=== PATIENT | female | born 2000 | race Caucasian/White ===

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

== ENCOUNTER 2019-03-15 15:16 | Emergency (ER) | payer BC ==
[2019-03-15 15:39] VITALS: BP 137/76
[2019-03-15] MEDS ORDERED: DOXYcycline CAP(*) 100 MG PO ONE (15:55)
--- NOTE | 2019-03-15 16:00 | ED ---
Skin Complaint - HPI Summary HPI Summary: 18 yr old with tick bite to the right lateral umbilical area. The patient had the tick on for about an hour and pulled it off intact. She has no other complaints. No other issues. She has allergies to penicillins. - History of Current Complaint Chief Complaint: UCSkin Time Seen by Provider: 03/15/19 15:38 Stated Complaint: TICK BITE Hx Last Menstrual Period: 03/12/19 Pain Intensity: 0 - Allergy/Home Medications Allergies/Adverse Reactions: Allergies Allergy/AdvReac Type Severity Reaction Status Date / Time amoxicillin Allergy Intermediate Rash Verified 03/15/19 15:36 Penicillins Allergy Intermediate Rash Verified 03/15/19 15:36 Home Medications: Home Medications Norethindrone AC-Eth Estradiol [Junel 1 mg-20 Mcg Tablet] 1 tab DAILY 03/15/19 [ History Confirmed 03/15/19] PMH/Surg Hx/FS Hx/Imm Hx Endocrine/Hematology History: Denies: Hx Anticoagulant Therapy, Hx Diabetes, Hx Thyroid Disease Cardiovascular History: Denies: Hx Congestive Heart Failure, Hx Deep Vein Thrombosis, Hx Hypertension , Hx Myocardial Infarction, Hx Pacemaker/ICD Respiratory History: Denies: Hx Asthma, Hx Chronic Obstructive Pulmonary Disease (COPD), Hx Lung Cancer, Hx Pneumonia, Hx Pulmonary Embolism GI History: Denies: Hx Gall Bladder Disease, Hx Gastrointestinal Bleed, Hx Ulcer, Hx Urosepsis History: Denies: Hx Kidney Stones, Hx Renal Disease Neurological History: Denies: Hx Dementia, Hx Migraine, Hx Seizures, Hx Transient Ischemic Attacks (TIA) Psychiatric History: Denies: Hx Anxiety, Hx Depression, Hx Schizophrenia, Hx Bipolar Disorder Infectious Disease History: No Infectious Disease History: Denies: Traveled Outside the [place] in Last 30 Days - Family History Known Family History: Positive: Hypertension Negative: Cardiac Disease - Social History Alcohol Use: Occasionally Substance Use Type: Reports: None Smoking Status (MU): Never Smoked Tobacco Review of Systems Constitutional: Negative Positive: Other - tick bite All Other Systems Reviewed And Are Negative: Yes Physical Exam Triage Information Reviewed: Yes Vital Signs On Initial Exam: Initial Vitals Temp Pulse Resp BP Pulse Ox 98.5 F 79 16 137/76 97 03/15/19 15:37 03/15/19 15:37 03/15/19 15:37 03/15/19 15:37 03/15/19 15:37 Vital Signs Reviewed: Yes Appearance: Positive: Well-Appearing, No Pain Distress Skin: Positive: Other - there is a small bite louis to the right of the umbilicus. No erythema. No FB seen. Head/Face: Positive: Normal Head/Face Inspection Eyes: Positive: EOMI, MERISSA ENT: Positive: Normal ENT inspection Neck: Positive: Nontender Respiratory/Lung Sounds: Positive: Clear to Auscultation, Breath Sounds Present Cardiovascular: Positive: RRR. Negative: Murmur Abdomen Description: Positive: Nontender Musculoskeletal: Positive: Strength/ROM Intact Neurological: Positive: Sensory/Motor Intact, Alert, Oriented to Person Place, Time, CN Intact II-III, Normal Gait, Speech Normal Psychiatric: Positive: Normal - [place] Coma Scale Best Eye Response: 4 - Spontaneous Best Motor Response: 6 - Obeys Commands Best Verbal Response: 5 - Oriented Coma Scale Total: 15 Diagnostics - Vital Signs Vital Signs Temp Pulse Resp BP Pulse Ox 03/15/19 15:37 98.5 F 79 16 137/76 97 - Laboratory Lab Statement: Any lab studies that have been ordered have been reviewed, and results considered in the medical decision making process. Course/Dx - Course Course Of Treatment: 18 yr old with tick bite. Doxy 200 mg given here. - Diagnoses Provider Diagnoses: Tick bite of abdominal wall Discharge - Sign-Out/Discharge Documenting (check all that apply): Patient Departure All imaging exams completed and their final reports reviewed: No Studies - Discharge Plan Condition: Good Disposition: HOME Patient Education Materials: Tick Bite (ED), Hypertension (ED) Referrals: Ruba Beatty MD [Primary Care Provider] - 3 Days - Billing Disposition and Condition Condition: GOOD Disposition: Home
== END 2019-03-15 16:02 | disposition home or self-care (01) ==
LOC: UCCORT 15:16
DX: S30.861A Insect bite (nonvenomous) of abdominal wall, initial encounter (principal); W57.XXXA Bitten or stung by nonvenomous insect and other nonvenomous arthropods, initial encounter; Y92.89 Other specified places as the place of occurrence of the external cause; Z88.0 Allergy status to penicillin
CPT/HCPCS: 99212; A9270-GY; G0463